=== PATIENT | female | born 1940 | race Caucasian/White ===

== ENCOUNTER 2019-01-11 19:15 | Inpatient (IN) ==
[2019-01-11] MEDS ORDERED: Aspirin 81 MG TAB.CHEW PO ONE (19:21)
--- NOTE | 2019-01-11 19:22 | Emergency Department Note ---
Disposition Clinical Impression: RAVINDER (acute kidney injury) Atrial fibrillation Qualifiers: Atrial fibrillation type: chronic Qualified Code(s): I48.2 - Chronic atrial f ibrillation Chest pain Qualifiers: Chest pain type: unspecified Qualified Code(s): R07.9 - Chest pain, unspecified Disposition: Admitted As Inpatient Condition: Fair Time of Disposition: 20:53 Chest Pain HPI - General Stated Complaint: dizzy shoulder pain Time Seen by Provider: 01/11/19 19:17 Source: patient, EMS Mode of arrival: EMS Limitations: no limitations Vital Signs Reviewed: Yes Nursing Notes Reviewed: Yes - History of Present Illness HPI Narrative: 78 yo female with past medical history of atrial fibrillation on Xarelto, hypertension, hyperlipidemia, diabetes, stroke presents to the emergency department via EMS with a complaint of sudden onset of dizziness, nausea and vomiting, diaphoresis and right shoulder pain. Patient states this occurred while she was sitting in her chair. She had an episode similar to this yesterday when limits. She currently does not have any pain and feels back to normal. She did vomit once during the onset of symptoms. She states she takes a baby aspirin daily after her stroke and took one this morning. She denies headache, chest pain, shortness of breath, abdominal pain, nausea and vomiting at this time. - Related Data Home Medications Medication Instructions Recorded Confirmed Atorvastatin [Lipitor] 80 mg PO HS 09/26/15 11/08/18 Diltiazem HCl [Diltiazem 24Hr Cd] 360 mg PO DAILY 09/26/15 11/08/18 FLUoxetine HCl [PROzac] 40 mg PO DAILY 09/26/15 11/08/18 Rivaroxaban [Xarelto] 20 mg PO DAILY 09/26/15 11/08/18 Vit C/E/Zn/Coppr/Lutein/Zeaxan 1 cap PO DAILY 11/08/18 11/08/18 [Preservision Areds 2 Softgel] Aspirin 325 mg PO DAILY 01/11/19 01/11/19 Rivaroxaban [Xarelto] 20 mg PO HS 01/11/19 01/11/19 Tylenol 01/11/19 Previous Rx's Medication Instructions Recorded Atorvastatin Calcium [Lipitor] 80 mg PO HS #30 tab 12/12/18 Diltiazem CD (24hr) [Cardizem CD] 360 mg PO DAILY #30 cap.er.24h 12/12/18 FLUoxetine HCl [PROzac] 40 mg PO DAILY #30 capsule 12/12/18 Famotidine [Pepcid] 20 mg PO BID #60 tablet 12/12/18 Metoprolol [Lopressor] 25 mg PO BID #60 tablet 12/12/18 Allergies Allergy/AdvReac Type Severity Reaction Status Date / Time metformin AdvReac Gastrointestinal Verified 11/08/18 19:23 Upset oxycodone [From Percocet] AdvReac Nausea Verified 03/29/15 10:03 All systems ED: reviewed and negative except as stated. Review of Systems: As Per HPI Constitutional: Denies: fever, weakness Cardiovascular: Reports: chest pain. Denies: palpitations, dyspnea on exertion, orthopnea, edema, syncope Respiratory: Denies: cough, dyspnea, wheezes Gastrointestinal: Reports: nausea, vomiting. Denies: abdominal pain, diarrhea Musculoskeletal: Reports: back pain. Denies: neck pain Integumentary: Denies: rash Neurological: Denies: headache Chest Pain PMH - Past Medical History Medical history: Reports: atrial fibrillation, cancer, CVA, diabetes, other Psychiatric history: Reports: anxiety, depression - Social History Smoking Status: Never smoker Alcohol use: Reports: none Drug use: Reports: none Physical Exam - General Limitations: no limitations General appearance: alert, in no apparent distress - Head Head exam: atraumatic, normocephalic - Eye Eye exam: Present: normal appearance, PERRL, EOMI - ENT ENT exam: normal exam, normal oropharynx - Neck Neck exam: Present: normal inspection. Absent: tenderness - Chest Chest inspection: Present: normal inspection. Absent: tenderness, rash - Respiratory Respiratory exam: Present: normal lung sounds bilaterally. Absent: wheezes - Cardiovascular Cardiovascular exam: Present: normal rhythm, bradycardia - Abdominal Exam Abdominal exam: Present: soft, Non-Tender. Absent: distention, guarding, rebound, rigidity - Extremities Exam Extremities exam: Present: normal inspection. Absent: tenderness, pedal edema - Neurological Exam Neurological exam: Present: alert, oriented X3 - Psychiatric Psychiatric exam: Present: normal affect, normal mood - Skin Skin exam: Present: warm, dry, intact Course Vital Signs Temperature 98 F 01/11/19 19:17 Pulse Rate 48 01/11/19 19:17 Respiratory Rate 16 01/11/19 19:17 Blood Pressure 103/66 01/11/19 19:17 O2 Sat by Pulse Oximetry 93 01/11/19 19:17 Temperature 98 F 01/11/19 19:17 Pulse Rate 48 01/11/19 19:17 Respiratory Rate 16 01/11/19 19:17 Blood Pressure 103/66 01/11/19 19:17 O2 Sat by Pulse Oximetry 93 01/11/19 19:17 Oxygen Delivery Oxygen Delivery Room Air Chest Pain - MDM Narrative Medical decision making narrative: Patient presents for sudden onset of dizziness, diaphoresis, vomiting and right shoulder pain which is concerning for a cardiac equivalent. Patient will be evaluated for ACS with EKG, chest x-ray, basic labs, troponin, magnesium, BNP and be given aspirin. She is pain-free currently and her blood pressure is low at 100/66, therefore we will not order nitroglycerin at this time. Patient was also hypoxic by squad at 92% and is currently 93% here on 2 L, therefore we will order a d-dimer to rule out pulmonary embolus. 2049 - pts lab work has returned and her troponin, d-dimer, CBC are all within normal limits. Her heart score is 7 and she is at significant risk for adverse cardiac event if discharged home. The patient also has an RAVINDER with an elevated creatinine and her BNP is also slightly elevated. Patient states she is still chest pain-free at this time and is feeling about the same as when she arrived here. Patient is agreeable with being admitted to the hospital for IV fluid hydration and cardiac evaluation as her last heart catheter was approximately 6 or 7 years ago and she does not have a scheduled medical hospital sales appointment for several months up at [facility]. Patient will be started on maintenance fluids and admitted to the hospitalist. - Medical Records Medical records reviewed: Yes I reviewed the patient's medical records. - Lab Data Lab results reviewed: Yes I reviewed the patient's lab results. Result diagrams: 01/11/19 19:44 01/11/19 19:44 Lab Results 01/11/19 01/11/19 01/11/19 Range/Units 19:44 19:44 19:44 WBC 9.7 (4.3-11.1) K/mcL RBC 4.13 (3.82-4.97) M/mcL Hgb 12.6 (11.5-15.4) g/dL Hct 39.4 (35.3-44.9) % MCV 95.4 (83.0-100.0) fL MCH 30.5 (28.0-33.3) pg MCHC 32.0 (31.6-35.5) g/dL RDW 15.3 H (11.5-14.5) % Plt Count 272 (140-400) K/mcL MPV 9.8 (9.4-12.4) fL Immature Gran % 0.4 (0-4) % Seg Neutrophils % 72.7 % Lymphocytes % 16.2 % Monocytes % 8.9 % Eosinophils % 1.2 % Basophils % 0.6 % Neutrophils # 7.1 (1.6-8.9) K/mcL Lymphocytes # 1.6 (0.6-4.6) K/mcL Monocytes # 0.9 (0.0-1.3) K/mcL Eosinophils # 0.1 (0.0-0.6) K/mcL Basophils # 0.1 (0.0-0.2) K/mcL D-Dimer (0-500) ng/mLFEU Sodium 138 (136-145) mEq/L Potassium 4.2 (3.5-5.1) mEq/L Chloride 107 (98-107) mEq/L Carbon Dioxide 23 (23-29) mEq/L BUN 20 (8-23) mg/dL Creatinine 1.24 H (0.60-1.20) mg/dL Est GFR ( Amer) 51 L (> 60) Est GFR (Non-Af Amer) 42 L (> 60) BUN/Creatinine Ratio 16 (6-26) Glucose 187 H (70-105) mg/dL Calculated Osmolality 294 (280-300) Calcium 9.6 (8.6-10.3) mg/dL Magnesium 1.9 (1.6-2.6) mg/dL Troponin I < 0.03 (< 0.04) ng/mL B-Natriuretic Peptide 565 H (Less than 100) pg/mL 01/11/19 Range/Units 19:44 WBC (4.3-11.1) K/mcL RBC (3.82-4.97) M/mcL Hgb (11.5-15.4) g/dL Hct (35.3-44.9) % MCV (83.0-100.0) fL MCH (28.0-33.3) pg MCHC (31.6-35.5) g/dL RDW (11.5-14.5) % Plt Count (140-400) K/mcL MPV (9.4-12.4) fL Immature Gran % (0-4) % Seg Neutrophils % % Lymphocytes % % Monocytes % % Eosinophils % % Basophils % % Neutrophils # (1.6-8.9) K/mcL Lymphocytes # (0.6-4.6) K/mcL Monocytes # (0.0-1.3) K/mcL Eosinophils # (0.0-0.6) K/mcL Basophils # (0.0-0.2) K/mcL D-Dimer 445 (0-500) ng/mLFEU Sodium (136-145) mEq/L Potassium (3.5-5.1) mEq/L Chloride (98-107) mEq/L Carbon Dioxide (23-29) mEq/L BUN (8-23) mg/dL Creatinine (0.60-1.20) mg/dL Est GFR ( Amer) (> 60) Est GFR (Non-Af Amer) (> 60) BUN/Creatinine Ratio (6-26) Glucose (70-105) mg/dL Calculated Osmolality (280-300) Calcium (8.6-10.3) mg/dL Magnesium (1.6-2.6) mg/dL Troponin I (< 0.04) ng/mL B-Natriuretic Peptide (Less than 100) pg/mL - Radiology Data Radiology results reviewed: Yes I reviewed the patient's radiology results. - EKG Data EKG attestation: Yes I reviewed and interpreted this EKG. EKG results narrative: EKG obtained at 19:18 on 01/11/2019 Heart rate 47 bpm, QRS duration 83, QT 531, QTC 470 Junctional rhythm with flattened T waves in anterior and lateral leads as well as the inferior leads. No signs of ST segment elevations. Previous EKG dated 10/28/2018 shows sinus rhythm with normal-appearing T waves. Heart Score - Score History: Highly Suspicious EKG: Non Specific repolarisation Disturbance Age: Greater than 65 Risk Factors: Equal/Greater than 3 risk factor or history of atherosclerotic disease Troponin: Less than normal limit HEART Score Total: 7
--- NOTE | 2019-01-11 19:26 | Emergency Department Note ---
Disposition Clinical Impression: Atrial fibrillation Qualifiers: Atrial fibrillation type: chronic Qualified Code(s): I48.2 - Chronic atrial fibrillation Chest pain Qualifiers: Chest pain type: unspecified Qualified Code(s): R07.9 - Chest pain, unspecified Disposition: Admitted As Inpatient Time of Disposition: 19:26 General Adult HPI - General Stated complaint: dizzy shoulder pain Time Seen by Provider: 01/11/19 19:17 Source: patient, EMS Mode of arrival: EMS Limitations: no limitations Nursing Notes Reviewed: Yes Vital Signs Reviewed: Yes - History of Present Illness HPI Narrative: Attestation note: Patient was seen with the emergency medicine resident/nurse practitioner/ph ysician assistant loan processor/transitional resident/medical student: Dr. ISRA THOMAS. I was present for the significant portions of the performance and interpretation of procedures and EKGs. I have personally performed a face to face evaluation on this patient. I have reviewed and agree with history and physical examination patient management and disposition. 78-year-old female presents with chest pain and radiation to the right shoulder with some nausea dyspnea brought in by EMS for chest pain. Transmitted EKG shows nonspecific ST-T changes but no STEMI. Physical examination patient appears slightly fatigued but responds to questions is not diaphoretic or pale. This had her systolic was about 91 in the field here to over 100. Pacer review patient's cardiology note at [facility] her heart score is 7. Patient took a baby aspirin this morning she will be given 3 more baby aspirin she is chest pain-free at this time. She will get troponin chest x-ray screening labs with admission anticipated. Providing 30 minutes critical care service for this patient. Disposition pending Pain Scale: 0 - Related Data Home Medications Medication Instructions Recorded Confirmed Atorvastatin [Lipitor] 80 mg PO HS 09/26/15 11/08/18 Diltiazem HCl [Diltiazem 24Hr Cd] 360 mg PO DAILY 09/26/15 11/08/18 FLUoxetine HCl [PROzac] 40 mg PO DAILY 09/26/15 11/08/18 Rivaroxaban [Xarelto] 20 mg PO DAILY 09/26/15 11/08/18 Vit C/E/Zn/Coppr/Lutein/Zeaxan 1 cap PO DAILY 11/08/18 11/08/18 [Preservision Areds 2 Softgel] Previous Rx's Medication Instructions Recorded Atorvastatin Calcium [Lipitor] 80 mg PO HS #30 tab 12/12/18 Diltiazem CD (24hr) [Cardizem CD] 360 mg PO DAILY #30 cap.er.24h 12/12/18 FLUoxetine HCl [PROzac] 40 mg PO DAILY #30 capsule 12/12/18 Famotidine [Pepcid] 20 mg PO BID #60 tablet 12/12/18 Metoprolol [Lopressor] 25 mg PO BID #60 tablet 12/12/18 Rivaroxaban [Xarelto] 20 mg PO DAILY #30 tablet 12/12/18 Allergies Allergy/AdvReac Type Severity Reaction Status Date / Time metformin AdvReac Gastrointestinal Verified 11/08/18 19:23 Upset oxycodone [From Percocet] AdvReac Nausea Verified 03/29/15 10:03 Past Medical History - Past Medical History Medical history: Reports: atrial fibrillation, cancer, CVA, DVT, diabetes, other Psychiatric history: Reports: anxiety, depression - Social History Smoking Status: Never smoker Smokeless Tobacco Status: No Alcohol use: Reports: none Drug use: Reports: none Physical Exam - General Limitations: no limitations General appearance: alert Course Vital Signs Temperature 98 F 01/11/19 19:17 Pulse Rate 48 01/11/19 19:17 Respiratory Rate 16 01/11/19 19:17 Blood Pressure 103/66 01/11/19 19:17 O2 Sat by Pulse Oximetry 93 01/11/19 19:17 Temperature 98 F 01/11/19 19:17 Pulse Rate 48 01/11/19 19:17 Respiratory Rate 16 01/11/19 19:17 Blood Pressure 103/66 01/11/19 19:17 O2 Sat by Pulse Oximetry 93 01/11/19 19:17 Oxygen Delivery Oxygen Delivery Room Air
[2019-01-11 20:01] LABS: Basophils # 0.1 K/mcL (0.0-0.2); Basophils % 0.6 %; Eosinophils # 0.1 K/mcL (0.0-0.6); Eosinophils % 1.2 %; Hematocrit 39.4 % (35.3-44.9); Hemoglobin 12.6 g/dL (11.5-15.4); Immature Granulocytes % 0.4 % (0-4); Lymphocytes # 1.6 K/mcL (0.6-4.6); Lymphocytes % 16.2 %; Mean Corpuscular Hemoglobin 30.5 pg (28.0-33.3); Mean Corpuscular Volume 95.4 fL (83.0-100.0); Mean Platelet Volume 9.8 fL (9.4-12.4); Monocytes # 0.9 K/mcL (0.0-1.3); Monocytes % 8.9 %; Neutrophils # 7.1 K/mcL (1.6-8.9); Platelet Count 272 K/mcL (140-400); Red Blood Count 4.13 M/mcL (3.82-4.97); Red Cell Distribution Width 15.3 % (11.5-14.5); Segmented Neutrophils % 72.7 %; White Blood Count 9.7 K/mcL (4.3-11.1)
[2019-01-11 20:25] LABS: BUN/Creatinine Ratio 16 (6-26); Blood Urea Nitrogen 20 mg/dL (8-23); Calcium 9.6 mg/dL (8.6-10.3); Carbon Dioxide 23 mEq/L (23-29); Chloride 107 mEq/L (98-107); Glucose 187 mg/dL (70-105); Magnesium 1.9 mg/dL (1.6-2.6); Osmolality,Calculated 294 (280-300); Potassium 4.2 mEq/L (3.5-5.1); Sodium 138 mEq/L (136-145); Troponin I < 0.03 ng/mL (< 0.04); eGFR For African Americans 51 (> 60); eGFR For Non-African Americans 42 (> 60)
[2019-01-11] MEDS: 0.9 % Sodium Chloride 1,000 ML IVC SCH (21:03)
[2019-01-11] MEDS ORDERED: Naloxone 0.4 MG/ML INJ IVP PRN (21:58)
[2019-01-11] MEDS ORDERED: Ondansetron 4 MG/2 ML VIAL IVP PRN (21:58)
[2019-01-11] MEDS ORDERED: D5% in Water 1,000 ML IVC PRN (22:04)
[2019-01-11] MEDS ORDERED: *HR* Dextrose 50 % in Water (Syg) 50 ML SYRINGE IVP PRN (22:04)
[2019-01-11] MEDS ORDERED: Dextrose Gel 15 GM/37.5 ML TUBE PO PRN ×2 (22:04)
--- NOTE | 2019-01-11 22:04 | Internal Med History&Physical ---
Date of Encounter: 01/11/19 Time of Encounter: 21:45 Internal Medicine - H&P: HPI Chief complaint: ACS rule out Admitted From: Emergency Dept Plans for Post Hospital Care: Home History of present illness: Ms. Hearn is a 78 year old female Patient presented to the ER with right should pain, dizziness and vomiting. St ates that she was sitting in a chair when she suddenly had dizziness, right should pain and an episode of vomiting. She had a similar episode the day before that resolved on its own. She has a significant history of resent stroke as well as atrial fibrillation currently on xarelto. She was also seen in the ER about 10 days ago for a fall requiring a stable to be placed for a head wound. When she arrived to the ER she was pain free. In the ER patient's vital signs were notable for a heart rate of 48, blood pressure of 103/66. CBC: Within normal limits BMP: Notable for creatinine of 1.24, GFR of 42, glucose of 187. Troponin undetectable BNP 565 D-dimer 445 Chest x-ray showed no evidence of acute cardiopulmonary disease EKG: bradycardia with rate of 47, no ischemic changes. In the ER patient received a dose of aspirin, and was started on maintenance fluids at 75cc/hr. Due to her history she was admitted to the hospital for ACS rule out. Upon my evaluation patient had an episode of vomiting upon transfer from the stretcher to the hospital bed. She denies chest pain, abdominal pain, nausea, vomiting, diarrhea, constipation, shortness of breath and vision changes. She states that she has a family history significant for diabetes in her mother and father, and her mother had heart disease. She is a full code. Past Med Surg Social Fam HX - Past Medical History Medical history: atrial fibrillation, cancer, CVA, DVT, diabetes, other Additional medical history: breast ca. uteran cancer. right leg fx/ sx. blood clot in head Psychiatric history: anxiety, depression - Past Surgical History Additional surgical history: Right shoulder replacement, hyst, left knee, right leg plate, ORIF left ankle, cataract surgery - Social History Smoking Status: Never smoker Smokeless Tobacco Status: No Alcohol use: none Drug use: none - Family History Father Living Status: Hx Family Cancer: Yes Mother Living Status: Hx Family Cardiac Disorders: Yes Internal Medicine - H&P: Meds Atorvastatin [Lipitor] 80 mg PO HS 09/26/15 [History] Diltiazem HCl [Diltiazem 24Hr Cd] 360 mg PO DAILY 09/26/15 [History] FLUoxetine HCl [PROzac] 40 mg PO DAILY #30 capsule 12/12/18 [Rx] Famotidine [Pepcid] 20 mg PO BID #60 tablet 12/12/18 [Rx] Metoprolol [Lopressor] 25 mg PO BID #60 tablet 12/12/18 [Rx] Aspirin 325 mg PO DAILY 01/11/19 [History] Rivaroxaban [Xarelto] 20 mg PO HS 01/11/19 [History] Tylenol 01/11/19 [History] Allergy/AdvReac Type Severity Reaction Status Date / Time metformin AdvReac Gastrointestinal Verified 11/08/18 19:23 Upset oxycodone [From Percocet] AdvReac Nausea Verified 03/29/15 10:03 All Systems PM: A 10-system review of systems was performed and is negative for pertinent findings except as documented above in the HPI. - Constitutional Vitals: Temp Pulse Resp BP Pulse Ox 97.5 F L 45 15 94/60 93 01/11/19 21:24 01/11/19 21:24 01/11/19 21:24 01/11/19 21:24 01/11/19 21:24 General appearance: Present: cooperative, A&O X 3, pleasant, no acute distress, answers questions appropriately Exam: - - Head Head exam: Present: normal inspection - Eye Eye exam: Present: EOMI, normal appearance - Respiratory Respiratory exam: Present: CTAB. Absent: rales, respiratory distress, rhonchi, wheezes - Cardiovascular Cardiovascular exam: Present: bradycardia. Absent: diastolic murmur, systolic murmur - GI/Abdominal GI/Abdominal exam: Present: normal bowel sounds, soft. Absent: tenderness - Extremities Exam Extremities exam: Present: warm, radial pulses palpable and symmetrical. Absent: calf tenderness, pedal edema, tenderness - Neurological Exam Neurological exam: Present: motor sensory deficit. Absent: no focal deficits, strengths equal and symetr throughout, facial droop, speech deficit Additional comments: Left side weaker than right secondary to CVA two months ago - Skin Skin exam: Present: dry, normal color, warm Internal Med - H&P Results - Labs CBC & Chem 7: 01/11/19 19:44 01/11/19 19:44 Labs: Short CBC 01/11/19 Range/Units 19:44 WBC 9.7 (4.3-11.1) K/mcL Hgb 12.6 (11.5-15.4) g/dL Hct 39.4 (35.3-44.9) % Plt Count 272 (140-400) K/mcL Neutrophils # 7.1 (1.6-8.9) K/mcL BMP 01/11/19 19:44 Sodium 138 Potassium 4.2 Chloride 107 Carbon Dioxide 23 BUN 20 Creatinine 1.24 H Glucose 187 H Calcium 9.6 Cardiac Enzymes 01/11/19 Range/Units 19:44 Troponin I < 0.03 (< 0.04) ng/mL - Impressions ITS Impressions Chest X-Ray 01/11/19 19:18 IMPRESSION: No evidence of acute cardiopulmonary disease. D/ / Armando Lemus MD / Armando Lemus MD Interpreting Provider: Armando Lemus MD - Assessment and Plan (1) Right shoulder pain Current Visit: Yes Status: Acute Assessment and plan: Pain started in the afternoon, associated with dizziness and vomiting. Patient denies chest pain, denies recent falls although she did have a fall on 01/01/19 after she was walking in her home. Denies injury to the shoulder at that time. Current symptoms suspicious for chest pain equivalent, will rule out ACS. EKG non-ischemic, troponin undetectable. Pain now resolved. Continue to trend troponin Cardiac monitoring Echocardiogram in the morning. Continue xarelto Consider gallbladder disease if cardiac work up remains negative Qualifiers: Chronicity: acute Qualified Code(s): M25.511 - Pain in right shoulder (2) RAVINDER (acute kidney injury) Current Visit: Yes Status: Acute Assessment and plan: Patient's creatinine elevated form previous, likely secondary to dehydration and vomiting. Started on low maintenance fluids of 75cc/hr. Repeat labs in the morning Continue to monitor (3) Atrial fibrillation Current Visit: Yes Status: Chronic Assessment and plan: currently rate controlled, rate of mid to high 40's. Patient states that this is her basline. Cardiac monitoring Qualifiers: Atrial fibrillation type: chronic Qualified Code(s): I48.2 - Chronic atrial fibrillation (4) Cerebrovascular accident (CVA) Current Visit: No Status: Acute Assessment and plan: Left sided weakness at baseline Qualifiers: CVA mechanism: embolism Precerebral and cerebral artery: middle cerebral artery Laterality of affected vessel: right Qualified Code(s): I63.411 - Cerebral infarction due to embolism of right middle cerebral artery (5) Chronic anticoagulation Current Visit: No Status: Acute Assessment and plan: On xarelto for history of atrial fibrillation (6) Diabetes Current Visit: No Status: Acute Assessment and plan: Patient is not an insulin dependent diabetic Monitor sugars Q6H Diabetic diet/ NPO after midnight Low dose insulin sliding scale as needed Hold home meds. Qualifiers: Diabetes mellitus type: type 2 Diabetes mellitus intermediate accountant insulin use: without intermediate accountant use Diabetes mellitus complication status: with hyperglycemia Qualified Code(s): E11.65 - Type 2 diabetes mellitus with hyperglycemia (7) DVT prophylaxis Current Visit: Yes Status: Acute Assessment and plan: Continue home xarelto - Time Spent With Patient Total time spent is greater than 50% in coordination of care (as documented) at patient's floor/unit and/or counseling patient:
[2019-01-11] MEDS ORDERED: *HR* Rivaroxaban 10 MG TABLET PO SCH (22:30)
[2019-01-12] MEDS: Insulin LISPRO 300 UNITS/3 ML VIAL SQ SCH ×4 (00:10→17:52)
[2019-01-12 02:39] LABS: Hematocrit 35.8 % (35.3-44.9); Hemoglobin 11.2 g/dL (11.5-15.4); Mean Corpuscular HGB Conc 31.3 g/dL (31.6-35.5); Mean Corpuscular Hemoglobin 29.7 pg (28.0-33.3); Mean Platelet Volume 10.1 fL (9.4-12.4); Platelet Count 243 K/mcL (140-400); Red Blood Count 3.77 M/mcL (3.82-4.97); Red Cell Distribution Width 15.6 % (11.5-14.5); White Blood Count 9.3 K/mcL (4.3-11.1)
[2019-01-12 02:56] LABS: Calcium 9.2 mg/dL (8.6-10.3); Potassium 4.3 mEq/L (3.5-5.1)
[2019-01-12] MEDS: FLUoxetine 20 MG CAPSULE PO SCH (07:53)
[2019-01-12] MEDS: Aspirin 325 MG TABLET PO SCH (07:54)
--- NOTE | 2019-01-12 08:41 | Internal Med Progress Note ---
Hospitalist Progress Note - Encounter Date of Encounter: 01/12/19 Time of Encounter: 08:39 - Subjective Interval History: Pt seen and examined in the room. Reported intermittent left sided chest pain and shoulder pain, associated with mild sob and cough. Denies palpitation or syncope. - Exam Vitals: Temp Pulse Resp BP Pulse Ox 98.1 F 117 16 142/73 93 01/12/19 07:29 01/12/19 07:29 01/12/19 07:29 01/12/19 07:29 01/12/19 07:29 Exam: PHYSICAL EXAMINATION: GENERAL APPEARANCE: The patient is alert, oriented and in no acute distress. HEENT: Head is normocephalic. The sinuses are nontender. Pupils are equal and reactive. The nares are patent. Oropharynx clear without lesions. NECK: Supple without lymphadenopathy. HEART: Regular rate and rhythm. LUNGS: No crackles or wheezes are heard. ABDOMEN: Soft, nontender, nondistended with good bowel sounds heard. Inguinal area is normal. EXTREMITIES: Without cyanosis, clubbing or edema. NEUROLOGICAL: Gross nonfocal. SKIN: Warm and dry without any rash. - Assessment and Plan (1) Right shoulder pain Current Visit: Yes Status: Acute Assessment and Plan: Pain started in the afternoon, associated with dizziness and vomiting. Patient denies chest pain, denies recent falls although she did have a fall on 01/01/19 after she was walking in her home. Denies injury to the shoulder at that time. Current symptoms suspicious for chest pain equivalent, will rule out ACS. EKG non-ischemic, troponin undetectable. Pain now resolved. Continue to trend troponin Cardiac monitoring Echocardiogram in the morning. Continue xarelto (2) Cerebrovascular accident (CVA) Current Visit: No Status: Acute Assessment and Plan: Left sided weakness at baseline (3) Atrial fibrillation Current Visit: No Status: Chronic Assessment and Plan: currently rate controlled, rate of mid to high 40's. Patient states that this is her basline. Cardiac monitoring. Hold home meds Cardizem and Metoprolol for now. (4) Chronic anticoagulation Current Visit: No Status: Acute Assessment and Plan: On xarelto for history of atrial fibrillation (5) Diabetes Current Visit: No Status: Acute Assessment and Plan: Patient is not an insulin dependent diabetic Low dose insulin sliding scale as needed Hold home meds. (6) RAVINDER (acute kidney injury) Current Visit: Yes Status: Resolved (7) DVT prophylaxis Current Visit: Yes Status: Acute Assessment and Plan: Continue home xarelto - Time Spent with Patient Total time spent is greater than 50% in coordination of care (as documented) at patient's floor/unit and/or counseling patient: Greater than 35 minutes Plan of Care Discussed with: patient Internal Medicine: Result - Labs CBC & Chem 7: 01/12/19 01:50 01/12/19 01:50 Labs: Short CBC 01/11/19 01/12/19 Range/Units 19:44 01:50 WBC 9.7 9.3 (4.3-11.1) K/mcL Hgb 12.6 11.2 L (11.5-15.4) g/dL Hct 39.4 35.8 (35.3-44.9) % Plt Count 272 243 (140-400) K/mcL Neutrophils # 7.1 (1.6-8.9) K/mcL BMP 01/11/19 01/12/19 19:44 01:50 Sodium 138 142 Potassium 4.2 4.3 Chloride 107 109 H Carbon Dioxide 23 22 L BUN 20 23 Creatinine 1.24 H 1.10 Glucose 187 H 156 H Calcium 9.6 9.2 Cardiac Enzymes 01/11/19 01/12/19 Range/Units 19:44 01:50 Troponin I < 0.03 < 0.03 (< 0.04) ng/mL - ABG Interpretation ABG results: PT/INR, D-dimer 445 ng/mLFEU (0-500) 01/11/19 19:44 - Impressions Impressions Chest X-Ray 01/11/19 19:18 IMPRESSION: No evidence of acute cardiopulmonary disease. D/ / Armando Lemus MD / Armando Lemus MD Interpreting Provider: Armando Lemus MD Consult Discharge Plan - Plan Referrals: NONE,PCP [Primary Care Provider] - (1) Right shoulder pain Qualifiers: Chronicity: acute Qualified Code(s): M25.511 - Pain in right shoulder (2) Cerebrovascular accident (CVA) Qualifiers: CVA mechanism: embolism Precerebral and cerebral artery: middle cerebral artery Laterality of affected vessel: right Qualified Code(s): I63.411 - Cerebral infarction due to embolism of right middle cerebral artery (3) Atrial fibrillation Qualifiers: Atrial fibrillation type: chronic Qualified Code(s): I48.2 - Chronic atrial fibrillation (5) Diabetes Qualifiers: Diabetes mellitus type: type 2 Diabetes mellitus alf insulin use: without dedicated intermodal truck driver use Diabetes mellitus complication status: with hyperglycemia Qualified Code(s): E11.65 - Type 2 diabetes mellitus with hyperglycemia
[2019-01-12] MEDS ORDERED: Famotidine 20 MG TABLET PO SCH (09:00)
[2019-01-12] MEDS: Diltiazem CD (24hr) 180 MG CAPSULE PO SCH (10:13)
[2019-01-12] MEDS: 0.9 % Sodium Chloride 1,000 ML IVC SCH (10:17)
[2019-01-12] MEDS: *HR* Rivaroxaban 15 MG TABLET PO SCH (17:46)
[2019-01-13] MEDS: 0.9 % Sodium Chloride 1,000 ML IVC SCH (00:42)
[2019-01-13] MEDS: Insulin LISPRO 300 UNITS/3 ML VIAL SQ SCH ×5 (00:43→23:11)
[2019-01-13 07:13] LABS: Basophils % 0.4 %; Eosinophils # 0.2 K/mcL (0.0-0.6); Eosinophils % 2.2 %; Hematocrit 34.7 % (35.3-44.9); Hemoglobin 10.7 g/dL (11.5-15.4); Immature Granulocytes % 0.3 % (0-4); Lymphocytes # 1.8 K/mcL (0.6-4.6); Lymphocytes % 27.2 %; Mean Corpuscular HGB Conc 30.8 g/dL (31.6-35.5); Mean Corpuscular Hemoglobin 30.2 pg (28.0-33.3); Mean Platelet Volume 9.8 fL (9.4-12.4); Monocytes # 0.8 K/mcL (0.0-1.3); Monocytes % 11.7 %; Neutrophils # 3.9 K/mcL (1.6-8.9); Platelet Count 218 K/mcL (140-400); Red Blood Count 3.54 M/mcL (3.82-4.97); Red Cell Distribution Width 15.6 % (11.5-14.5); Segmented Neutrophils % 58.2 %; White Blood Count 6.7 K/mcL (4.3-11.1)
[2019-01-13] MEDS ORDERED: Regadenoson 0.4 MG/5 ML SYRINGE IVP ONE (07:21)
[2019-01-13 07:33] LABS: BUN/Creatinine Ratio 25 (6-26); Blood Urea Nitrogen 16 mg/dL (8-23); Carbon Dioxide 24 mEq/L (23-29); Chloride 107 mEq/L (98-107); Glucose 124 mg/dL (70-105); Osmolality,Calculated 297 (280-300); Potassium 3.9 mEq/L (3.5-5.1); Sodium 142 mEq/L (136-145); eGFR For African Americans > 60 (> 60); eGFR For Non-African Americans > 60 (> 60)
[2019-01-13] MEDS: Aspirin 325 MG TABLET PO SCH (09:49)
[2019-01-13] MEDS: FLUoxetine 20 MG CAPSULE PO SCH (09:49)
[2019-01-13] MEDS: Diltiazem CD (24hr) 180 MG CAPSULE PO SCH (09:49)
[2019-01-13] MEDS: Famotidine 20 MG TABLET PO SCH (09:50)
--- NOTE | 2019-01-13 10:05 | Internal Med Progress Note ---
Hospitalist Progress Note - Encounter Date of Encounter: 01/13/19 Time of Encounter: 09:58 - Subjective Interval History: Pt seen and examined in the room. She has no chest pain right now. She denies sob, palpitation, or syncope. - Exam Vitals: Temp Pulse Resp BP Pulse Ox 97.8 F 95 18 126/64 93 01/13/19 04:43 01/13/19 04:43 01/13/19 04:43 01/13/19 04:43 01/13/19 04:43 Exam: PHYSICAL EXAMINATION: GENERAL APPEARANCE: The patient is alert, oriented and in no acute distress. HEENT: Head is normocephalic. The sinuses are nontender. Pupils are equal and reactive. The nares are patent. Oropharynx clear without lesions. NECK: Supple without lymphadenopathy. HEART: Regular rate and rhythm. LUNGS: No crackles or wheezes are heard. ABDOMEN: Soft, nontender, nondistended with good bowel sounds heard. Inguinal area is normal. EXTREMITIES: Without cyanosis, clubbing or edema. NEUROLOGICAL: Gross nonfocal. SKIN: Warm and dry without any rash. - Assessment and Plan (1) Right shoulder pain Current Visit: Yes Status: Acute Assessment and Plan: 01/12 Pain started in the afternoon, associated with dizziness and vomiting. Patient denies chest pain, denies recent falls although she did have a fall on 01/01/19 after she was walking in her home. Denies injury to the shoulder at that time. Current symptoms suspicious for chest pain equivalent, will rule out ACS. EKG non-ischemic, troponin undetectable. Pain now resolved. Continue to trend troponin Cardiac monitoring Echocardiogram in the morning. Continue xarelto. 01/13 Chest pain and right shoulder pain have improved. ECHO and stress test were unremarkable. Pt had one fall yesterday. PT/OT consulted. (2) Cerebrovascular accident (CVA) Current Visit: No Status: Acute Assessment and Plan: Left sided weakness at baseline (3) Atrial fibrillation Current Visit: No Status: Chronic Assessment and Plan: currently rate controlled, rate 60-80. Continue metoprolol and cardizem. Cardiac monitoring. (4) Chronic anticoagulation Current Visit: No Status: Acute Assessment and Plan: On xarelto for history of atrial fibrillation (5) Diabetes Current Visit: No Status: Acute Assessment and Plan: Patient is not an insulin dependent diabetic Low dose insulin sliding scale as needed Hold home meds. (6) RAVINDER (acute kidney injury) Current Visit: Yes Status: Resolved (7) DVT prophylaxis Current Visit: Yes Status: Acute Assessment and Plan: Continue home xarelto - Time Spent with Patient Total time spent is greater than 50% in coordination of care (as documented) at patient's floor/unit and/or counseling patient: Greater than 35 minutes Plan of Care Discussed with: patient Internal Medicine: Result - Labs CBC & Chem 7: 01/13/19 06:26 01/13/19 06:26 Labs: Short CBC 01/13/19 Range/Units 06:26 WBC 6.7 (4.3-11.1) K/mcL Hgb 10.7 L (11.5-15.4) g/dL Hct 34.7 L (35.3-44.9) % Plt Count 218 (140-400) K/mcL Neutrophils # 3.9 (1.6-8.9) K/mcL BMP 01/13/19 06:26 Sodium 142 Potassium 3.9 Chloride 107 Carbon Dioxide 24 BUN 16 Creatinine 0.64 Glucose 124 H Calcium 9.0 - ABG Interpretation ABG results: PT/INR, D-dimer 445 ng/mLFEU (0-500) 01/11/19 19:44 - Impressions Impressions Echocardiogram 01/12/19 10:00 Impressions: LVEF 45-50%. Mild global left ventricular systolic dysfunction. Indeterminate diastolic function. Normal right ventricular structure and function. Mildly dilated left atrium. History of mild aortic stenosis, not present on current study. Moderate-severe mitral regurgitation. Moderate tricuspid regurgitation. Moderate pulmonic regurgitation. Moderate pulmonary hypertension. Recommend repeat limited echo for LVEF and Doppler evaluation after rate control Left Ventricular Wall Motion: Rest Echo Findings The apex, apical inferior, mid inferior, basal inferior, apical anterior, mid anterior, basal anterior, apical septal, mid inferior septal, basal inferior septal, apical lateral, mid anterior lateral, basal anterior lateral, mid anterior septal, mid inferior lateral, basal anterior septal and basal inferior lateral moore were hypokinetic. Findings: Study Quality * Technically sub-optimal due to clinical status. ECG Findings * Atrial fibrillation, RVR. Left Ventricle * LVEF 45-50%. * Normal LV chamber size, wall thickness. * Mild global left ventricular systolic dysfunction. * Indeterminate diastolic function. Right Ventricle * Normal right ventricular structure and function. Left Atrium * Mildly dilated left atrium. Right Atrium * Normal right atrial size. Interatrial Septum * Interatrial septum not well evaluated. Aortic Valve * Moderately calcified aortic valve leaflets. * No aortic regurgitation. * History of mild aortic stenosis, not present on current study. Recommend dedicated doppler evaluation. Mitral Valve * Normal mitral valve structure. * Mild mitral annular calcification * Moderate-severe mitral regurgitation. * No mitral stenosis. Tricuspid Valve * Normal tricuspid valve structure. * No tricuspid stenosis. * Moderate tricuspid regurgitation. * Estimated RVSP is 50 mmHg. * Estimated RA pressure is 15 mmHg. * Moderate pulmonary hypertension. Pulmonic Valve * Pulmonic valve is not well visualized. * No pulmonic stenosis. * Moderate pulmonic regurgitation. Aorta * Normally sized aortic root. Pericardium * The pericardium appears normal. IVC * The IVC is not dilated. 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
--- NOTE | 2019-01-13 14:15 | Cardiology Consult Note ---
<Louis Sparrow - Last Filed: 01/13/19 14:31> Date of Encounter: 01/13/19 Time of Encounter: 14:13 Assessment and Plan (1) Cardiomyopathy Current Visit: Yes Status: Acute TTE showed new mildly reduced LVEF at 45-50%. Therewas mild aortic stenosis. Moderate to severe mitral regurgitation. Moderate TR, IA. Moderate PAH. During exam patient was in atrial fibrillation with RVR. Repeat study recommended now that HR controlled. Also last TTE done at [facility]. We will order. She is currently euvolemic. Low sodium diet recommended. Further recommendation following TTE. Qualifiers: Cardiomyopathy type: unspecified Qualified Code(s): I42.9 - Cardiomyopathy, unspecified (2) Right shoulder pain Current Visit: Yes Status: Acute Atypical right shoulder pain with diaphoresis and dizziness. Cardiac work-up this admission: Troponin negative x3. EKG atrial fibrillation with slow response. HR 47. No acute ST changes. Stress test was negative for ischemia or infarct. Gated EF 47%. Telemetry shows atrial fibrillation. Avg HR 92 bpm. Min HR 49 bpm. TTE shows EF mildly reduced at 45-50% compared to 2017 EF 60-65%. We will review [facility] records and repeat TTE. Qualifiers: Chronicity: acute Qualified Code(s): M25.511 - Pain in right shoulder (3) Atrial fibrillation Current Visit: No Status: Chronic Patient noted to have HR in the 40's on admission and throughout stay. Metoprolol held on evening of admission and pt developed afib with RVR as seen during echo. Telemetry review shows avg HR 84 bpm. Min HR 39 bpm at 1830 yesterday. No significant pauses. Recommend continuing metoprolol and cardizem. If significant recurrent bradycardia will consider decreasing medication. Continue xarelto. Patient should be on 20 mg daily. S/p CVA 10/28/18 after missing xarelto doses. Qualifiers: Atrial fibrillation type: chronic Qualified Code(s): I48.2 - Chronic atrial fibrillation Discussion w patient/family: The assessment and plan as outlined above was discussed with the patient and/or family members who expressed understanding and agreement. All questions were answered. Thank you for involving us in the care of your patient. Please call with any questions. History of Present Illness Consult date: 01/13/19 Requesting physician: Tonie Lai Consult reason: abnormal echo, bradycardia Chief complaint: weakness, nausea, right shoulder blade pain History of present illness: Ms. Hearn is a 78 year old female with past medical history significant for atrial fibrillation, HTN, HLD, DM type II and recent CVA with prolonged hospital stay at [facility]. She presents with weakness, dizziness, nausea, and right shoulder blade pain on Sunday. The patient was concerned she was having a heart attack. Denies prior history of CAD or IA. She was released from physical therapy to home a couple weeks ago. expresses concern that she is not regaining her strength. She is having difficulty doing physical therapy. He is inquiring if her medications could be causing her symptoms. Denies recent change in medications. She denies chest pain or significant SOB. Cardiology consulted for abnormal echo and bradycardia. Past Med Surg Social Fam HX - Past Medical History Medical history: atrial fibrillation, cancer, CVA, DVT, diabetes, other Additional medical history: breast ca. uteran cancer. right leg fx/ sx. blood clot in head Psychiatric history: anxiety, depression - Past Surgical History Additional surgical history: Right shoulder replacement, hyst, left knee, right leg plate, ORIF left ankle, cataract surgery - Social History Smoking Status: Never smoker Smokeless Tobacco Status: No Alcohol use: none Drug use: none - Family History Father Living Status: Hx Family Cancer: Yes Hx Family Endocrine Disorder: Yes (DM) Mother Living Status: Hx Family Cardiac Disorders: Yes Hx Family Endocrine Disorder: Yes (DM) Medications and Allergies Diltiazem HCl [Diltiazem 24Hr Cd] 360 mg PO DAILY 09/26/15 [History] FLUoxetine HCl [PROzac] 40 mg PO DAILY #30 capsule 12/12/18 [Rx] Famotidine [Pepcid] 20 mg PO BID #60 tablet 12/12/18 [Rx] Metoprolol [Lopressor] 25 mg PO BID #60 tablet 12/12/18 [Rx] Acetaminophen [Tylenol Arthritis] 650 mg PO Q8H PRN 01/11/19 [History] Aspirin 325 mg PO DAILY 01/11/19 [History] Rivaroxaban [Xarelto] 20 mg PO HS 01/11/19 [History] Ammonium Lactate 1 appl TP BID 01/13/19 [History] Atorvastatin Calcium 80 mg PO HS 01/13/19 [History] Cholecalciferol (Vitamin D3) [Vitamin D3] 2,000 units PO DAILY 01/13/19 [History] Vit C/E/Zn/Coppr/Lutein/Zeaxan [Preservision Areds 2 Softgel] 2 cap PO DAILY 01/13/19 [History] Allergy/AdvReac Type Severity Reaction Status Date / Time hydrocodone Allergy See Verified 01/13/19 13:42 Comments metformin AdvReac Diarrhea, Verified 01/13/19 13:42 Gastrointestinal Upset oxycodone [From Percocet] AdvReac Nausea Verified 01/11/19 23:07 All Systems Review: The remainder of the systems were reviewed and are negative Physical Examination Vital Signs, Last 4 Hours Temp Pulse Resp BP Pulse Ox 01/13/19 12:19 97.7 F 85 18 134/82 96 General: Conversant, No Apparent Distress HEENT: Atraumatic, Normocephaly, Mucus Membranes Moist Neck: No JVD, Normal carotid pulses Cardiac: Other (irregularly irregular, 3/6 systolic murmur) Lungs: Normal Breath Sounds, No Wheeze, Rales, Rhonchi Neuro: Alert and responsive, Other (left arm weakness noted) Abdomen: Soft, Non-Tender Skin: No rashes noted on visualized skin Musculoskeletal: No Chest Wall Tenderness Extremities: No Clubbing, No Cyanosis, No Edema, Normal Pulses Results 01/13/19 06:26 01/13/19 06:26 Lab Results 01/13/19 01/13/19 06:26 06:26 WBC 6.7 Hgb 10.7 L Hct 34.7 L Plt Count 218 Sodium 142 Potassium 3.9 Chloride 107 Carbon Dioxide 24 BUN 16 Creatinine 0.64 Glucose 124 H Calcium 9.0 - Imaging and Cardiology Stress Test: report reviewed Echo: pending, report reviewed - EKG Interpretation EKG results cardiology: personally reviewed Consult Discharge Plan - Plan Referrals: Job Venegas MD [Partnered Physician] - 01/20/19 1:30 pm <Sari Pandey - Last Filed: 01/13/19 17:10> Date of Encounter: 01/13/19 - Attending Attestation I examined this patient and my medical decision-making was reviewed with the PENCILS WASHER. I agree with the documented findings, disposition and treatment plan as described. Ms. Hearn presents with right shoulder pain. Troponin negative. Stress testing without ischemia. Echo returned with mild reduction in EF but not optimal due to elevated heart rates. Recommend repeat Echo now that heart rates are controlled. Request records from [facility] for comparison. Continue xarelto for AFIB. Recent CVA at [facility]. Patient/ mainly concerned about functional status and his concern about taking care of her at home. Recommend functional assessment and social work consult. Assessment and Plan Discussion w patient/family: The assessment and plan as outlined above was discussed with the patient and/or family members who expressed understanding and agreement. All questions were answered. Thank you for involving us in the care of your patient. Please call with any questions. History of Present Illness History of present illness: Ms. Hearn is a 78 year old female All Systems Review: The remainder of the systems were reviewed and are negative Physical Examination Vital Signs, Last 4 Hours Temp Pulse Resp BP Pulse Ox 01/13/19 15:59 97.7 F 69 17 112/67 92 Results 01/13/19 06:26 01/13/19 06:26 Lab Results 01/13/19 01/13/19 06:26 06:26 WBC 6.7 Hgb 10.7 L Hct 34.7 L Plt Count 218 Sodium 142 Potassium 3.9 Chloride 107 Carbon Dioxide 24 BUN 16 Creatinine 0.64 Glucose 124 H Calcium 9.0
[2019-01-13] MEDS: *HR* Rivaroxaban 15 MG TABLET PO SCH (18:18)
[2019-01-14 02:50] LABS: Hematocrit 31.5 % (35.3-44.9); Mean Corpuscular HGB Conc 31.7 g/dL (31.6-35.5); Mean Corpuscular Hemoglobin 30.4 pg (28.0-33.3); Mean Corpuscular Volume 95.7 fL (83.0-100.0); Mean Platelet Volume 9.9 fL (9.4-12.4); Platelet Count 223 K/mcL (140-400); Red Blood Count 3.29 M/mcL (3.82-4.97); Red Cell Distribution Width 15.3 % (11.5-14.5); White Blood Count 6.9 K/mcL (4.3-11.1)
[2019-01-14 03:07] LABS: BUN/Creatinine Ratio 25 (6-26); Blood Urea Nitrogen 15 mg/dL (8-23); Calcium 9.1 mg/dL (8.6-10.3); Carbon Dioxide 24 mEq/L (23-29); Chloride 107 mEq/L (98-107); Glucose 136 mg/dL (70-105); Osmolality,Calculated 297 (280-300); Potassium 3.6 mEq/L (3.5-5.1); Sodium 142 mEq/L (136-145); eGFR For African Americans > 60 (> 60); eGFR For Non-African Americans > 60 (> 60)
[2019-01-14] MEDS: Insulin LISPRO 300 UNITS/3 ML VIAL SQ SCH ×4 (07:44→21:37)
[2019-01-14] MEDS: Famotidine 20 MG TABLET PO SCH ×2 (09:09→21:38)
[2019-01-14] MEDS: Diltiazem CD (24hr) 180 MG CAPSULE PO SCH (09:09)
[2019-01-14] MEDS: FLUoxetine 20 MG CAPSULE PO SCH (09:09)
[2019-01-14] MEDS: Aspirin 325 MG TABLET PO SCH (09:10)
--- NOTE | 2019-01-14 09:29 | Internal Med Progress Note ---
Hospitalist Progress Note - Encounter Date of Encounter: 01/14/19 Time of Encounter: 09:27 - Subjective Interval History: Pt seen and examined in the room. Reported lightheadedness and weakness while standing from sitting, with associated SOB. Denies chest pain currently. Had a stroke recently and completed rehab. - Exam Vitals: Temp Pulse Resp BP Pulse Ox 98.2 F 102 17 135/87 94 01/14/19 07:19 01/14/19 07:19 01/14/19 07:19 01/14/19 07:19 01/14/19 07:19 Exam: PHYSICAL EXAMINATION: GENERAL APPEARANCE: The patient is alert, oriented and in no acute distress. HEENT: Head is normocephalic. The sinuses are nontender. Pupils are equal and reactive. The nares are patent. Oropharynx clear without lesions. NECK: Supple without lymphadenopathy. HEART: Regular rate and rhythm. LUNGS: No crackles or wheezes are heard. ABDOMEN: Soft, nontender, nondistended with good bowel sounds heard. Inguinal area is normal. EXTREMITIES: Without cyanosis, clubbing or edema. NEUROLOGICAL: Gross nonfocal. SKIN: Warm and dry without any rash. - Assessment and Plan (1) Right shoulder pain Current Visit: Yes Status: Acute Assessment and Plan: 01/12 Pain started in the afternoon, associated with dizziness and vomiting. Patient denies chest pain, denies recent falls although she did have a fall on 01/01/19 after she was walking in her home. Denies injury to the shoulder at that time. Current symptoms suspicious for chest pain equivalent, will rule out ACS. EKG non-ischemic, troponin undetectable. Pain now resolved. Continue to trend troponin Cardiac monitoring Echocardiogram in the morning. Continue xarelto. 01/13 Chest pain and right shoulder pain have improved. ECHO and stress test were unremarkable. Pt had one fall yesterday. PT/OT consulted. 01/14 Tele reviewed and had no jacqui event. Still having weakness or occasional lightheadedness. Pending PT/OT. Cardiology following. (2) Cerebrovascular accident (CVA) Current Visit: No Status: Acute Assessment and Plan: Left sided weakness at baseline (3) Atrial fibrillation Current Visit: No Status: Chronic Assessment and Plan: currently rate controlled, rate 60-80. Continue metoprolol and cardizem. Cardiac monitoring. Continue Xarelto. Cardiology following (4) Chronic anticoagulation Current Visit: No Status: Acute Assessment and Plan: On xarelto for history of atrial fibrillation (5) Diabetes Current Visit: No Status: Acute Assessment and Plan: Patient is not an insulin dependent diabetic Low dose insulin sliding scale as needed Hold home meds. (6) RAVINDER (acute kidney injury) Current Visit: Yes Status: Resolved (7) DVT prophylaxis Current Visit: Yes Status: Acute Assessment and Plan: Continue home xarelto - Time Spent with Patient Total time spent is greater than 50% in coordination of care (as documented) at patient's floor/unit and/or counseling patient: Greater than 35 minutes Plan of Care Discussed with: patient Internal Medicine: Result - Labs CBC & Chem 7: 01/14/19 02:01 01/14/19 02:01 Labs: Short CBC 01/14/19 Range/Units 02:01 WBC 6.9 (4.3-11.1) K/mcL Hgb 10.0 L (11.5-15.4) g/dL Hct 31.5 L (35.3-44.9) % Plt Count 223 (140-400) K/mcL BMP 01/14/19 02:01 Sodium 142 Potassium 3.6 Chloride 107 Carbon Dioxide 24 BUN 15 Creatinine 0.61 Glucose 136 H Calcium 9.1 - ABG Interpretation ABG results: PT/INR, D-dimer 445 ng/mLFEU (0-500) 01/11/19 19:44 Consult Discharge Plan - Plan Referrals: Job Venegas MD [Partnered Physician] - 01/20/19 1:30 pm (1) Right shoulder pain Qualifiers: Chronicity: acute Qualified Code(s): M25.511 - Pain in right shoulder (2) Cerebrovascular accident (CVA) Qualifiers: CVA mechanism: embolism Precerebral and cerebral artery: middle cerebral artery Laterality of affected vessel: right Qualified Code(s): I63.411 - Ce rebral infarction due to embolism of right middle cerebral artery (3) Atrial fibrillation Qualifiers: Atrial fibrillation type: chronic Qualified Code(s): I48.2 - Chronic atrial fibrillation (5) Diabetes Qualifiers: Diabetes mellitus type: type 2 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
--- NOTE | 2019-01-14 10:56 | Electrocardiograph Report ---
[address] [place] [address] Test Date: 2019-01-11 Pat Name: Carole Hearn Department: [id number] Room: 3B23 Gender: F Special Officer: : 1940 Requested By: Vee Coppola Order Number: [id number] Reading MD: Sari Pandey Measurements Intervals [place] Rate: 47 P: [place]: QRS: 33 QRSD: 83 T: 5 QT: 531 QTc: 470 Interpretive Statements Junctional rhythm Anterior infarct, old Borderline T abnormalities, inferior leads Electronically Signed On 01-14-2019 10:54:33 EDT by Sari Pandey
--- NOTE | 2019-01-14 14:41 | Cardiology Progress Note ---
Date of Encounter: 01/14/19 Time of Encounter: 14:20 Assessment and Plan (1) Cardiomyopathy Current Visit: Yes Status: Acute TTE showed new mildly reduced LVEF at 45-50%. There was mild aortic stenosis. Moderate to severe mitral regurgitation. Moderate TR, MS. Moderate PAH. During exam patient was in atrial fibrillation with RVR. Repeat study recommend ed now that HR controlled. Repeat TTE shows EF 50%, moderate to severe MR, mild . Also last TTE done at [facility] 10/2018 showed EF 50% with mild to moderate MR. She is currently euvolemic. Low sodium diet recommended. Ischemic evaluation with [facility] recommended for declining EF and worsening MR. R/B/A of [facility] reviewed. Patient agrees to proceed. Qualifiers: Cardiomyopathy type: unspecified Qualified Code(s): I42.9 - Cardiomyopathy, unspecified (2) Right shoulder pain Current Visit: Yes Status: Acute Atypical right shoulder pain with diaphoresis and dizziness. Cardiac work-up this admission: Troponin negative x3. EKG atrial fibrillation with slow response. HR 47. No acute ST changes. Stress test was negative for ischemia or infarct. Gated EF 47%. States remote [facility] with no obstructive CAD. Telemetry shows atrial fibrillation. Avg HR 92 bpm. Min HR 49 bpm. TTE shows EF mildly reduced at 45-50% compared to 2017 EF 60-65%. [facility] recommended to evaluate new CMP and MR. Qualifiers: Chronicity: acute Qualified Code(s): M25.511 - Pain in right shoulder (3) Atrial fibrillation Current Visit: No Status: Chronic Patient noted to have HR in the 40's on admission. Metoprolol held on evening of admission and pt developed afib with RVR as seen during echo. Meds restarted and now she is rate controlled. Avg HR 84 bpm. No significant bradycardia seen. No pauses. Recommend continuing metoprolol and cardizem. If significant recurrent br adycardia will consider decreasing medication. Continue xarelto---Will hold for [facility]. Restart tomorrow 01/15/19 after [facility]. Patient should be on 20 mg daily. S/p CVA 10/28/18 after missing xarelto doses. Qualifiers: Atrial fibrillation type: chronic Qualified Code(s): I48.2 - Chronic atrial fibrillation Discussion w patient/family: The assessment and plan as outlined above was discussed with the patient and/or family members who expressed understanding and agreement. All questions were answered. Thank you for involving us in the care of your patient. Please call with any questions. Subjective Principal diagnosis: new CMP, mod-severe MR Interval history: Ms. Hearn is a resting in her chair. States she feels better. No chest pain. Objective Vital Signs, Last 4 Hours Temp Pulse Resp BP Pulse Ox 01/14/19 11:31 97.9 F 79 19 131/67 94 Results 01/14/19 02:01 01/14/19 02:01 Lab Results 01/14/19 01/14/19 02:01 02:01 WBC 6.9 Hgb 10.0 L Hct 31.5 L Plt Count 223 Sodium 142 Potassium 3.6 Chloride 107 Carbon Dioxide 24 BUN 15 Creatinine 0.61 Glucose 136 H Calcium 9.1 Consult Discharge Plan - Plan Referrals: Job Venegas MD [Partnered Physician] - 01/20/19 1:30 pm
[2019-01-14] MEDS ORDERED: *HR* Rivaroxaban 10 MG TABLET PO SCH (17:00)
[2019-01-15 03:05] LABS: BUN/Creatinine Ratio 27 (6-26); Blood Urea Nitrogen 15 mg/dL (8-23); Carbon Dioxide 23 mEq/L (23-29); Chloride 107 mEq/L (98-107); Glucose 121 mg/dL (70-105); Osmolality,Calculated 290 (280-300); Potassium 3.7 mEq/L (3.5-5.1); Sodium 139 mEq/L (136-145); eGFR For African Americans > 60 (> 60); eGFR For Non-African Americans > 60 (> 60)
[2019-01-15 04:00] LABS: Basophils % 0.5 %; Eosinophils # 0.1 K/mcL (0.0-0.6); Hematocrit 31.8 % (35.3-44.9); Hemoglobin 10.2 g/dL (11.5-15.4); Immature Granulocytes % 0.3 % (0-4); Lymphocytes # 1.3 K/mcL (0.6-4.6); Lymphocytes % 20.8 %; Mean Corpuscular HGB Conc 32.1 g/dL (31.6-35.5); Mean Corpuscular Hemoglobin 30.6 pg (28.0-33.3); Mean Corpuscular Volume 95.5 fL (83.0-100.0); Mean Platelet Volume 9.4 fL (9.4-12.4); Monocytes # 0.7 K/mcL (0.0-1.3); Monocytes % 10.3 %; Neutrophils # 4.2 K/mcL (1.6-8.9); Platelet Count 218 K/mcL (140-400); Red Blood Count 3.33 M/mcL (3.82-4.97); Red Cell Distribution Width 15.3 % (11.5-14.5); Segmented Neutrophils % 66.1 %; White Blood Count 6.4 K/mcL (4.3-11.1)
[2019-01-15] MEDS: Diltiazem CD (24hr) 180 MG CAPSULE PO SCH (07:51)
[2019-01-15] MEDS: Famotidine 20 MG TABLET PO SCH ×2 (07:51→21:56)
[2019-01-15] MEDS: Aspirin 325 MG TABLET PO SCH (07:51)
[2019-01-15] MEDS: FLUoxetine 20 MG CAPSULE PO SCH (07:51)
[2019-01-15] MEDS: Insulin LISPRO 300 UNITS/3 ML VIAL SQ SCH ×4 (07:52→21:55)
[2019-01-15] MEDS ORDERED: *HR* Heparin 10,000 UNIT/10 ML VIAL ONE (11:37)
[2019-01-15] MEDS ORDERED: 0.9 % Sodium Chloride 1,000 ML ONE ×2 (11:37→11:45)
[2019-01-15] MEDS ORDERED: Heparin 1,000 UNITS/500 mL 500 ML ONE (11:37)
[2019-01-15] MEDS ORDERED: ISOVUE-370 200 ML INFUS..BTL ONE (11:37)
[2019-01-15] MEDS ORDERED: Nitroglycerin 1,000 MCG/10 ML VIAL IV ONE (11:37)
--- NOTE | 2019-01-15 11:45 | Pre-Sedation Evaluation ---
Pre-sedation evaluation - Pre-sedation checklist Date of procedure: 01/15/19 Procedure: [facility] Recent Vitals: Last Vital Signs Temp 98.1 F 01/15/19 07:31 Pulse 87 01/15/19 07:31 Resp 17 01/15/19 07:31 BP 129/60 01/15/19 07:31 Pulse Ox 94 01/15/19 07:31 H&P (including ROS) documented in medical record: Yes Previous reaction to sedatives/anesthetics: No Dietary Status: NPO after Midnight Airway Assessment: Patient can open mouth completely, TMJ function normal, Micrognathia (under-bite, receding chin) absent, Neck with adequate range of mot ion Dentition: No loose teeth or bridges Possible difficult airway: No ASA Classification *see protocol: CLASS II-Mild systemic disease Plan of Care: Pt appropriate candidate for procedure/moderate/conscious sedation, Risks/benefits of procedure/sedation discussed w/ patient/family Cardiac Registry (Cardio Only) - Functional Capacity Functional Capacity: < 4 METS - Clincal Frailty Scale Clinical Frailty Scale: Vulnerable
[2019-01-15] MEDS ORDERED: *HR* FentaNYL (PF) 100 MCG/2 ML VIAL ONE (12:02)
[2019-01-15] MEDS ORDERED: *HR* Midazolam HCl 2 MG/2 ML VIAL ONE (12:02)
--- NOTE | 2019-01-15 12:44 | Invasive Diagnostic Lab Proc ---
Name: Carole Hearn Date of Study: 01/15/2019 Date: 1940 Ht: 61.8in Medical Record#: [id number] Age: 78 Wt: 187.39lb Gender: Female BSA: 1.86 Order #: [id number] BMI: 34.48 Physicians Procedure Physician: Rowan Pena MD, [facility] Referring MD: Referring MD: Staff Name Position Time In Irasema Singleton RT (R) Monitor 12:03 PM Lucy Camacho RN Scrub 12:03 PM Stacie Sher RN Pickle Sorter 12:03 PM Procedures Performed Procedure L HRT ARTERY/VENTRICLE ANGIO Pre-Procedure Checklist Informed consent is complete signed and on chart. H&P is on chart. ID band is on and ID verified with patient. Patient NPO for procedure The procedure was described for the patient and questions were answered. Blood Pressure: 135/78 ECG is on chart. Rhythm: NSR Plan of Care Patient will tolerate the procedure without complications. Adequate level of comfort will be maintained. Hemodynamics will remain stable Patient will recover from procedure without complications. Respiratory function will be maintained. Cardiac rhythm will remain stable. Patient temperature will be maintained. Patient and/or family have verbalized understanding of the procedure. Patient Education Chief Complaint/Reason for Test: Cardiac Cath Developmental Category: Geriatric (65+ years) Developmentally Appropriate for Age: Yes Learning Barriers: None Education Needs: Procedure Education Method: Verbal Information Taught: Cardiac Cath Educational Evaluation: Able to repeat information Intravenous Access Time IV Size Location DC'd Fluid/Drip Rate Units RN 22g 1" Patent On Arrival 0.9NaCl 25 ml/hr Allergies hydrocodone acetaminophen oxycodone percocet metformin Vital Signs Time BP (mmHg) HR (bpm) O2 Sat. RR (bpm) LOC 12:05 PM / % 4 = Oriented but drowsy 12:05 PM / % 4 = Oriented but drowsy 12:03 PM 135 / 78 100 94 % 20 12:08 PM 127 / 91 67 90 % 14 12:13 PM 130 / 62 57 94 % 12 12:19 PM 122 / 65 68 93 % 12 12:20 PM / % 4 = Oriented but drowsy Procedural Medications Time Medication Dose Units Method Given By 12:04 PM Oxygen 2 L/min nasal cannula Mavis, Stacie RN 12:04 PM Versed 2 mg Intravenous Stacie Sher RN 12:04 PM Fentanyl 50 mcg Intravenous Stacie Sher RN 12:10 PM Oxygen 4 L/min nasal cannula Stacie Sher RN 12:10 PM Lidocaine 2% 19 ml Subcutaneous Rowan Pena MD, [facility] ASA Classification: CLASS II- Mild systemic disease (i.e. well-controlled diabetes, hypertension, asthma, cigarette smoking) Rubén Score Preprocedure Postprocedure Activity 2- Moves 4 extremities sustained head lift Activity 2- Moves 4 extremities sustained head lift Circulation 2- SBP +/= 20 points of pre-anesthetic level Circulation 2- SBP +/= 20 points of pre-anesthetic level Consciousness 2- Awake and alert oriented x 3 Consciousness 2- Awake and alert oriented x 3 O2 Saturation 2- Able to maintain O2 satruation of 92% on room air O2 Saturation 2- Able to maintain O2 satruation of 92% on room air Respiratory 2- Able to deep breathe and cough well Respiratory 2- Able to deep breathe and cough well Total Score 10 Total Score 10 Contrast Agent: Isovue Diagnostic Contrast: 62 ml Total Contrast: 62 ml Fluoro Dose: 40 mGy Procedure Log Time Note Enter By 12:00 PM CathStat 12:00 PM Vitals capture started with the following parameters, Patient=Adult, Interval=5 min, Initial Vjvftqtv=442 mmHg, Deflation Rate=3 mmHg, Cuff placed on Right Arm 12:01 PM Vitals capture stopped. 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 12:02 [email or web address] 12:03 PM ED=175 bpm, EVHZ=375/78 mmhg, SpO2=94.0 %, Resp=20 B/min, Comment=SR 12:03 PM Reference ECG taken 12:03 PM Recorded ECG: HR=90 Condition=Condition 1 12:03 PM Irasema Singleton RT (R) Position: Monitor Time in: 12:03 [email or web address] 12[facility]03 PM Lucy Camacho RN Position: Scrub Time in: 12:03 [email or web address] 12:04 PM Stacie Sher RN Position: Pickle Sorter Time in: 12:03 [email or web address] 12:04 PM Patient charges- Angio tray pack, Navilyst 3mm J, Pulse Oximetry and ACIST tubing and transducer [email or web address] 12:04 PM Case Delayed No [email or web address] 12:04 PM Hair removed from procedure site in holding area using clippers. Bilateral groin prepped with Chloraprep by Irasema Singleton (R), then patient was draped. Skin intact. [email or web address] 12:04 PM Physican paged/called 12:04. [email or web address] 12: PM Physician arrived 12: [email or web address] 12:04 PM ASA Class CLASS II- Mild systemic disease (i.e. well-controlled diabetes, hypertension, asthma, cigarette smoking) [email or web address] 12:04 PM Meet and nick completed [email or web address] 12:04 PM Sign in performed according to hospital policy. Informed consent was obtained. [email or web address] 12:04 PM Procedure start 12:04 [email or web address] 12:04 PM Time: 12:04 Oxygen on at 2 L/min per nasal cannula by Stacie Sher RN [email or web address] 12:04 PM Time: 12:04 Versed 2 mg Intravenous Given by Stacie Sher RN [email or web address] 12:04 PM Time: 12:04 Fentanyl 50 mcg Intravenous Given by Stacie Sher RN [email or web address] 12:05 PM Time: 12:05 Patient comfortable and pain free: Yes [email or web address] 12:05 PM Time: 12:05LOC: 4 = Oriented but drowsy [email or web address] 12:07 PM Pressure channel 1 zero failed. 12:07 PM Pressure channel 1 zero failed. 12:07 PM Pressure channel 1 zero failed. 12:07 PM Pressure channel 1 zeroed. 12:07 PM Pressure channel 1 zeroed. 12:08 PM HR=67 bpm, LZHI=791/91 mmhg, SpO2=90.0 %, Resp=14 B/min, EtCO2=31 mmHg, Comment=SR 12:10 PM Time out was performed according to hospital policy. Conscious sedation and anesthesia was achieved (see medication log with in this report above) [email or web address] 12:10 PM Time: 12:10 Oxygen on at 4 L/min per nasal cannula by Stacie Sher RN [email or web address] 12:11 PM Time: 12:10 19 ml Lidocaine 2% to right groin Subcutaneous [email or web address] PM Access obtained by percutaneous puncture. 5Fr 10cm Terumo [place] sheath placed in right Femoral artery. [id number] [email or web address] 12:12 PM 0.035 145cm Navilyst 3mmJ wire [id number] [email or web address] 12:12 PM 5Fr FL 4 catheter inserted over the wire DN [email or web address] 12:13 PM LCA angiography performed in multiple views. [email or web address] 12:13 PM HR=57 bpm, QLHK=165/62 mmhg, SpO2=94.0 %, Resp=12 B/min, Comment=SR 12:14 PM Recorded Pressure: Ao, HR=82, Condition=Condition 1 (Aorta) Ao 115/81/97 12:15 PM Catheter removed [email or web address] 12:15 PM 5Fr FR 4 catheter inserted over the wire [email or web address] 12:15 PM RCA angiography performed in multiple views. [email or web address] 12:16 PM Recorded Pressure: Ao, HR=76, Condition=Condition 1 (Aorta) Ao 107/78/92 12:17 PM Catheter removed [email or web address] 12:17 PM 5Fr Pigtail catheter inserted over the wire [email or web address] 12:17 PM Catheter crossed the aortic valve and was selectively placed in the left ventricle. Pressures recorded on pullback for left heart catheterization. [email or web address] 12:18 PM Pressure channel 1 zeroed. 12:18 PM Recorded Pressure: LV, HR=71, Condition=Condition 1 (Left Ventricle) LV 119/3/27 12:19 PM Bolus angiogram of left Ventricle complete: 8 ml/sec for a total of 24 mls [email or web address] 12:19 PM HR=68 bpm, LVZE=732/65 mmhg, SpO2=93.0 %, Resp=12 B/min, EtCO2=34 mmHg, Comment=SR 12:19 PM Recorded Pressure: LV, HR=74, Condition=Condition 1 (Left Ventricle) LV 103/58/61 12:20 PM Time: 12:05LOC: 4 = Oriented but drowsy [email or web address] 12:23 PM Procedure completed at 12:23 01/15/2019 [email or web address] 12:23 PM Coronary Dominance: right [email or web address] 12:24 PM Did you address YECENIA flow and Dominance? YesCoronary Dominance: right [email or web address] 12:24 PM Sign out completed: Radiation Dose 123.55 mGy, 40 Gy/cm2 Fluoro Time: 1.8 Isovue 370 - 200ml contrast 62 ml given by Rowan Pena MD, [facility]. Complications: None. 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 Sedation minutes 20. Cardiac Rehab Consult needed: No. Confirmed administered medications: Yes [email or web address] 12:25 PM Isovue 370 - 200ml,1 Bottle(s) used. [email or web address] 12:25 PM Arterial sheath pulled, Mynx closure device used and was Successful S/N. [email or web address] 12:25 PM Estimated Blood Loss: minimal [email or web address] 12:25 PM Vitals capture stopped. 12:25 PM Post ECG NSR [email or web address] 12:25 PM Post Blood Pressure 130/62 [email or web address] 12:26 PM 12:25 Post Pulses Bilateral DP & PT 1+ [email or web address] 12:26 PM Information taught Cardiac Cath and Mynx [email or web address] 12:30 PM Education needs Procedure, Plan of Care, and Disease Process [email or web address] 12:30 PM Learning barriers :None [email or web address] 12:30 PM Education Methods Verbal [email or web address] 12:30 PM Education evaluation Able to repeat information [email or web address] 12:30 PM Site status No bleeding/hematoma - Rt Groin as reported by Lucy Camacho RN at 12:30 [email or web address] 12:30 PM Opsite applied [email or web address] 12:30 PM Delay to floor No [email or web address] 12:30 PM Patient out of room: 12:30 [email or web address] 12:30 PM Complications: None [email or web address] 12:30 PM Family placed in consult room. [email or web address] 12:31 PM Lesion found in Proximal LAD. Pre Stenosis: 30 Pre YECENIA Flow: 3: Complete and Brisk Flow/Perfusion [email or web address] 12:31 PM Lesion found in Mid LAD. Pre Stenosis: 30 Pre YECENIA Flow: 3: Complete and Brisk Flow/Perfusion [email or web address] 12:31 PM Lesion found in Proximal Circumflex. Pre Stenosis: 30 Pre YECENIA Flow: 3: Complete and Brisk Flow/Perfusion [email or web address] 12:32 PM Lesion found in Proximal RCA. Pre Stenosis: 30 Pre YECENIA Flow: 3: Complete and Brisk Flow/Perfusion [email or web address] 12:32 PM Lesion found in Mid RCA. Pre Stenosis: 30 Pre YECENIA Flow: 3: Complete and Brisk Flow/Perfusion [email or web address] 12:35 PM Report given to Ankita FARFAN Pt taken to Room #23. 12:36 [email or web address] 12:35 PM Time: 12:20LOC: 4 = Oriented but drowsy [email or web address] Complications Complication None None Hemodynamics Pressures Site Systolic/A Wave Diastolic/V Wave Mean AO 115 81 97 AO 107 78 92 LV 119 3 27 LV 103 58 61 Post Procedure Information Blood Pressure: 130/62 mmHg Rhythm: NSR Post procedural instructions were given Closure Device Time Device Success/Fail 01/15/2019 12:30:00 PM MynxGrip Successful Site Checks Time Location Status Staff Sheath In? Note 12:30 PM Rt Groin No bleeding/hematoma Lucy Camacho RN Pulses Time Site Pre-Procedure Post-Procedure Note Bilateral DP & PT 2+ Bilateral radial 2+ 12:25:00 PM Bilateral DP & PT 1+ Updated by Irasema Singleton, RT(R) on 01/15/2019 12:38:33 PM electronically signed on 01/15/2019 12:38:56 PM with status of Final
--- NOTE | 2019-01-15 14:50 | Internal Med Progress Note ---
Hospitalist Progress Note - Encounter Date of Encounter: 01/15/19 Time of Encounter: 14:50 - Subjective Interval History: Patient was seen and examined at bedside patient is to undergo left heart catheter today per cardiology currently she is chest pain-free awaiting cardiology recommendations - Exam Vitals: Temp Pulse Resp BP Pulse Ox 97.6 F 70 18 108/76 96 01/15/19 12:43 01/15/19 13:34 01/15/19 13:34 01/15/19 13:34 01/15/19 13:34 Exam: PHYSICAL EXAMINATION: GENERAL APPEARANCE: The patient is alert, oriented and in no acute distress. HEENT: Head is normocephalic. The sinuses are nontender. Pupils are equal and reactive. The nares are patent. Oropharynx clear without lesions. NECK: Supple without lymphadenopathy. HEART: Regular rate and rhythm. LUNGS: No crackles or wheezes are heard. ABDOMEN: Soft, nontender, nondistended with good bowel sounds heard. Inguinal area is normal. EXTREMITIES: Without cyanosis, clubbing or edema. NEUROLOGICAL: Gross nonfocal. SKIN: Warm and dry without any rash. - Assessment and Plan (1) Cerebrovascular accident (CVA) Current Visit: No Status: Acute Assessment and Plan: Left sided weakness at baseline (2) Atrial fibrillation Current Visit: No Status: Chronic Assessment and Plan: currently rate controlled, rate 60-80. Continue metoprolol and cardizem. Cardiac monitoring. Continue Xarelto. Cardiology following 01/15 Currently rate controlled continue with beta colt Cardizem Continuous cardiac monitoring Continue Xarelto Cardiology following (3) Chronic anticoagulation Current Visit: No Status: Acute Assessment and Plan: On xarelto for history of atrial fibrillation (4) Diabetes Current Visit: No Status: Acute Assessment and Plan: Patient is not an insulin dependent diabetic Low dose insulin sliding scale as needed Hold home meds. (5) RAVINDER (acute kidney injury) Current Visit: Yes Status: Resolved Assessment and Plan: Patient's creatinine elevated form previous, likely secondary to dehydration and vomiting. Started on low maintenance fluids of 75cc/hr. Repeat labs in the morning Continue to monitor 01/15 Improved back to baseline we will continue to monitor (6) DVT prophylaxis Current Visit: Yes Status: Acute Assessment and Plan: Continue home xarelto (7) Right shoulder pain Current Visit: Yes Status: Acute Assessment and Plan: 01/12 Pain started in the afternoon, associated with dizziness and vomiting. Patient denies chest pain, denies recent falls although she did have a fall on 01/01/19 after she was walking in her home. Denies injury to the shoulder at that time. Current symptoms suspicious for chest pain equivalent, will rule out ACS. EKG non-ischemic, troponin undetectable. Pain now resolved. Continue to trend troponin Cardiac monitoring Echocardiogram in the morning. Continue xarelto. 01/13 Chest pain and right shoulder pain have improved. ECHO and stress test were unremarkable. Pt had one fall yesterday. PT/OT consulted. 01/14 Tele reviewed and had no jacqui event. Still having weakness or occasional lightheadedness. Pending PT/OT. Cardiology following. 01/15 Weakness and occasional lightheadedness with positional changes PTOT recommending ECF prior patient is declining - Time Spent with Patient Total time spent is greater than 50% in coordination of care (as documented) at patient's floor/unit and/or counseling patient: Internal Medicine: Result - Labs CBC & Chem 7: 01/15/19 03:46 01/15/19 01:56 Labs: Short CBC 01/15/19 Range/Units 03:46 WBC 6.4 (4.3-11.1) K/mcL Hgb 10.2 L (11.5-15.4) g/dL Hct 31.8 L (35.3-44.9) % Plt Count 218 (140-400) K/mcL Neutrophils # 4.2 (1.6-8.9) K/mcL BMP 01/15/19 01:56 Sodium 139 Potassium 3.7 Chloride 107 Carbon Dioxide 23 BUN 15 Creatinine 0.56 L Glucose 121 H Calcium 9.0 - ABG Interpretation ABG results: PT/INR, D-dimer 445 ng/mLFEU (0-500) 01/11/19 19:44 Consult Discharge Plan - Plan Referrals: Job Venegas MD [Partnered Physician] - 01/20/19 1:30 pm ___ (1) Cerebrovascular accident (CVA) Qualifiers: CVA mechanism: embolism Precerebral and cerebral artery: middle cerebral artery Laterality of affected vessel: right Qualified Code(s): I63.411 - Cerebral infarction due to embolism of right middle cerebral artery (2) Atrial fibrillation Qualifiers: Atrial fibrillation type: chronic Qualified Code(s): I48.2 - Chronic atrial fibrillation (4) Diabetes Qualifiers: Diabetes mellitus type: type 2 Diabetes mellitus shelter insulin use: without terminal supervisor use Diabetes mellitus complication status: with hyperglycemia Qualified Code(s): E11.65 - Type 2 diabetes mellitus with hyperglycemia (7) Right shoulder pain Qualifiers: Chronicity: acute Qualified Code(s): M25.511 - Pain in right shoulder
--- NOTE | 2019-01-15 17:08 | Event Note ---
Date of Encounter: 01/15/19 Time of Encounter: 17:06 - Cardiology Event Note Mild CAD per [facility] discussed with patient and family, no further inpatient cardiology recs. Cardiology will sign off, will arrange outpatient follow up.
[2019-01-16] MEDS: Insulin LISPRO 300 UNITS/3 ML VIAL SQ SCH ×2 (07:46→12:16)
[2019-01-16] MEDS: Diltiazem CD (24hr) 180 MG CAPSULE PO SCH (08:10)
[2019-01-16] MEDS: Aspirin 325 MG TABLET PO SCH (08:10)
[2019-01-16] MEDS: Famotidine 20 MG TABLET PO SCH (08:10)
[2019-01-16] MEDS: FLUoxetine 20 MG CAPSULE PO SCH (08:10)
--- NOTE | 2019-01-16 12:47 | Discharge Summary ---
- NOTES TO OUTPATIENT PROVIDER Notes to Outpatient Provider: cp seen by cardiology cath no stents - rehab for shoulder weakness Orders not resulted at time of discharge: Pending orders 01/12/19 18:17 NM magui perf SPECT multi [NM] Routine Date of Encounter: 01/16/19 Time of Encounter: 12:47 - Discharge Diagnosis (1) Cerebrovascular accident (CVA) Priority: Secondary Status: Acute Qualifiers: CVA mechanism: embolism Precerebral and cerebral artery: middle cerebral artery Laterality of affected vessel: right Qualified Code(s): I63.411 - Cerebral infarction due to embolism of right middle cerebral artery (2) Atrial fibrillation Priority: Secondary Status: Chronic Qualifiers: Atrial fibrillation type: chronic Qualified Code(s): I48.2 - Chronic atrial fibrillation (3) Chronic anticoagulation Priority: Secondary Status: Acute (4) Diabetes Priority: Secondary Status: Acute Qualifiers: Diabetes mellitus type: type 2 Diabetes mellitus senior care insulin use: without senior care use Diabetes mellitus complication status: with hyperglycemia Qualified Code(s): E11.65 - Type 2 diabetes mellitus with hyperglycemia (5) RAVINDER (acute kidney injury) Priority: Secondary Status: Resolved (6) Right shoulder pain Priority: Primary Status: Acute Qualifiers: Chronicity: acute Qualified Code(s): M25.511 - Pain in right shoulder Hospital course: Ms. Heran is a 78 year old female past medical history for age fibrillation hypertension hyperlipidemia diabetes type 2 recent CVA with prolonged hospital stay at [facility] presented with weakness dizziness nausea and right shoulder blade pain. Patient was concerned of having a heart attack she does not have any prior history of CAD-she did have some bradycardia on presentation metoprolol was held and she would develop A. fib RVR metoprolol was resumed and patient return back to sinus rhythm she was evaluated by cardiology and underwent a cardiac catheter which showed minimal CAD she also had an AK I which did resolve. She was evaluated by PT and OT recommending rehabilitation she has been accepted [facility] currently she is hemodynamically stable for discharge. - Time Spent with Patient Total time spent providing and/or coordinating discharge services: - Discharge Medications Prescriptions: Continued Diltiazem HCl [Diltiazem 24Hr Cd] 360 mg PO DAILY Aspirin 325 mg PO DAILY Rivaroxaban [Xarelto] 20 mg PO HS Acetaminophen [Tylenol Arthritis] 650 mg PO Q8H PRN PRN Reason: Pain Ammonium Lactate 1 appl TP BID Atorvastatin Calcium 80 mg PO HS Cholecalciferol (Vitamin D3) [Vitamin D3] 2,000 units PO DAILY Vit C/E/Zn/Coppr/Lutein/Zeaxan [Preservision Areds 2 Softgel] 2 cap PO DAILY Metoprolol [Lopressor] 25 mg PO BID #60 tablet Famotidine [Pepcid] 20 mg PO BID #60 tablet FLUoxetine HCl [Prozac] 40 mg PO DAILY #30 capsule Home Medications: Diltiazem HCl [Diltiazem 24Hr Cd] 360 mg PO DAILY 09/26/15 [History] FLUoxetine HCl [Prozac] 40 mg PO DAILY #30 capsule 12/12/18 [Rx] Famotidine [Pepcid] 20 mg PO BID #60 tablet 12/12/18 [Rx] Metoprolol [Lopressor] 25 mg PO BID #60 tablet 12/12/18 [Rx] Acetaminophen [Tylenol Arthritis] 650 mg PO Q8H PRN 01/11/19 [History] Aspirin 325 mg PO DAILY 01/11/19 [History] Rivaroxaban [Xarelto] 20 mg PO HS 01/11/19 [History] Ammonium Lactate 1 appl TP BID 01/13/19 [History] Atorvastatin Calcium 80 mg PO HS 01/13/19 [History] Cholecalciferol (Vitamin D3) [Vitamin D3] 2,000 units PO DAILY 01/13/19 [History] Vit C/E/Zn/Coppr/Lutein/Zeaxan [Preservision Areds 2 Softgel] 2 cap PO DAILY 01/13/19 [History] Allergies/Adverse Reactions: Allergy/AdvReac Type Severity Reaction Status Date / Time hydrocodone Allergy See Verified 01/13/19 13:42 Comments metformin AdvReac Diarrhea, Verified 01/13/19 13:42 Gastrointestinal Upset oxycodone [From Percocet] AdvReac Nausea Verified 01/11/19 23:07 Date of admission: 01/13/19 12:35 Primary care physician: PCP NONE Consults: 01/13/19 09:36 Consult to Occupational Therapy [CONS] Routine Comment: Evaluate, develop and implement POC Reason for Consult: Broken foot. Patient very weak unable to stand or ambulate with out help from staff. Falling at home a lot. Does patient have active BEDREST order?: No Is patient medically & hemodynamically stable?: Yes Patient assessed for mobility or mobilized this visit?: Yes Consult to Physical Therapy [CONS] Routine Comment: Evaluate, develop and implement POC Reason for Consult: Broken foot. Patient very weak unable to stand or ambulate with out help from staff. Falling at home a lot. Does patient have active BEDREST order?: No Is patient medically & hemodynamically stable?: Yes Patient assessed for mobility or mobilized this visit?: Yes 01/13/19 10:26 Consult to Cardiology [CONS] Routine Comment: Consulting Provider: Cardiology Rosy Reason for Consult: abnormal ECHO, weakness, bradycadia Call Completed: Yes 01/13/19 15:35 Consult to Siderographer [CONS] Routine Reason for SW Consult: patient assistance, home health Discharging clinician: Desirae Osborn Anticipated date of discharge: 01/16/19 - Constitutional Vitals: Temp Pulse Resp BP Pulse Ox 97.6 F 75 16 91/65 92 01/16/19 11:58 01/16/19 11:58 01/16/19 11:58 01/16/19 11:58 01/16/19 11:58 General appearance: Present: cooperative, A&O X 3, pleasant, no acute distress, answers questions appropriately Exam: PHYSICAL EXAMINATION: GENERAL APPEARANCE: The patient is alert, oriented and in no acute distress. HEENT: Head is normocephalic. The sinuses are nontender. Pupils are equal and reactive. The nares are patent. Oropharynx clear without lesions. NECK: Supple without lymphadenopathy. HEART: Regular rate and rhythm. LUNGS: No crackles or wheezes are heard. ABDOMEN: Soft, nontender, nondistended with good bowel sounds heard. Inguinal area is normal. EXTREMITIES: Without cyanosis, clubbing or edema. NEUROLOGICAL: Gross nonfocal. SKIN: Warm and dry without any rash. - Patient Status Disposition: Transfer Inpatient Rehab Fac Condition: Good Functional capacity at discharge: uses cane/walker Overall status at discharge: patient is back to baseline - Discharge Instructions Instructions: Pacemaker (DC) Follow Up With: Job Venegas MD [Partnered Physician] - 01/20/19 1:30 pm Forms: ED Satisfaction Letter - Diet and Activity Activity: as per physical therapy Diet: advance to your usual diet
--- NOTE | 2019-01-16 13:31 | Physician Discharge Referral ---
ExtendedCare Referral Info Transfer To: [facility] Provider in Charge: Roe Osborn Provider in Charge after Transfer: PCP Institutional Level of Care: Skilled - Diagnosis (1) Cerebrovascular accident (CVA) Priority: Secondary Status: Acute (2) Atrial fibrillation Priority: Secondary Status: Chronic (3) Chronic anticoagulation Priority: Secondary Status: Acute (4) Diabetes Priority: Secondary Status: Acute (5) RAVINDER (acute kidney injury) Priority: Secondary Status: Resolved (6) Right shoulder pain Priority: Primary Status: Acute Prognosis: Good Aware of Diagnosis: Patient Aware of Prognosis: Patient - Transfer Medications Home Medications: Diltiazem HCl [Diltiazem 24Hr Cd] 360 mg PO DAILY 09/26/15 [History] FLUoxetine HCl [Prozac] 40 mg PO DAILY #30 capsule 12/12/18 [Rx] Famotidine [Pepcid] 20 mg PO BID #60 tablet 12/12/18 [Rx] Metoprolol [Lopressor] 25 mg PO BID #60 tablet 12/12/18 [Rx] Acetaminophen [Tylenol Arthritis] 650 mg PO Q8H PRN 01/11/19 [History] Aspirin 325 mg PO DAILY 01/11/19 [History] Rivaroxaban [Xarelto] 20 mg PO HS 01/11/19 [History] Ammonium Lactate 1 appl TP BID 01/13/19 [History] Atorvastatin Calcium 80 mg PO HS 01/13/19 [History] Cholecalciferol (Vitamin D3) [Vitamin D3] 2,000 units PO DAILY 01/13/19 [History] Vit C/E/Zn/Coppr/Lutein/Zeaxan [Preservision Areds 2 Softgel] 2 cap PO DAILY 01/13/19 [History] Allergies/Adverse Reactions: Allergy/AdvReac Type Severity Reaction Status Date / Time hydrocodone Allergy See Verified 01/13/19 13:42 Comments metformin AdvReac Diarrhea, Verified 01/13/19 13:42 Gastrointestinal Upset oxycodone [From Percocet] AdvReac Nausea Verified 01/11/19 23:07 - Respiratory Orders Smoking Cessation: Smoking cessation has been advised. For more information, call the [place] Tobacco Quit Line at 4-453-TPBE-NOW. - Advance Directives Code Status: Full Code - Mobility Orders Ambulate - Rehabiliation Orders Rehab Potential: Good Rehab Orders: Evaluation for Physical Therapy - Diet Orders Cardiac CERTIFICATION: I certify that the transfer of the above named patient to an Extended Care Facility is necessary for the continuing treatment of the diagnosis listed. The above information is true and accurate reflection of patient's current condition. Confidential - Redisclosure prohibited without a patient's written consent.
[2019-01-16 13:36] VITALS: BP 112/80
[2019-01-16] MEDS ORDERED: *HR* Rivaroxaban 10 MG TABLET PO SCH (17:00)
== END 2019-01-16 14:06 | DRG 287 ==
LOC: EMEROOARM 19:15 → 3BNU 19:15
PROVIDERS: ADMIT Family Medicine; ATTEND Family Medicine

== ENCOUNTER 2022-02-02 11:09 | Inpatient (IN) ==
[2022-02-02 11:50] LABS: Basophils # 0.1 K/mcL (0.0-0.2); Basophils % 0.8 %; Eosinophils # 0.1 K/mcL (0.0-0.6); Eosinophils % 2.2 %; Hematocrit 48.3 % (35.3-44.9); Hemoglobin 15.7 g/dL (11.5-15.4); Immature Granulocytes % 0.2 % (0-4); Lymphocytes # 1.4 K/mcL (0.6-4.6); Mean Corpuscular HGB Conc 32.5 g/dL (31.6-35.5); Mean Corpuscular Hemoglobin 32.2 pg (28.0-33.3); Mean Corpuscular Volume 99.2 fL (83.0-100.0); Mean Platelet Volume 10.1 fL (9.4-12.4); Monocytes # 0.7 K/mcL (0.0-1.3); Monocytes % 11.7 %; Neutrophils # 3.7 K/mcL (1.6-8.9); Platelet Count 183 K/mcL (140-400); Red Blood Count 4.87 M/mcL (3.82-4.97); Segmented Neutrophils % 62.1 %
[2022-02-02 12:10] LABS: BUN/Creatinine Ratio 17 (6-26); Blood Urea Nitrogen 13 mg/dL (8-23); Calcium 9.2 mg/dL (8.6-10.3); Carbon Dioxide 28 mEq/L (23-29); Chloride 106 mEq/L (98-107); Glucose 117 mg/dL (70-105); Osmolality,Calculated 291 (280-300); Potassium 3.9 mEq/L (3.5-5.1); Sodium 140 mEq/L (136-145); Troponin I < 0.03 ng/mL (< 0.04); eGFR For African Americans > 60 (> 60); eGFR For Non-African Americans > 60 (> 60)
[2022-02-02] MEDS ORDERED: Ondansetron 4 MG/2 ML VIAL IVP PRN (14:38)
[2022-02-02] MEDS ORDERED: Melatonin 3 MG TABLET PO PRN (14:38)
[2022-02-02] MEDS ORDERED: Acetaminophen 325 MG TABLET PO PRN (14:38)
[2022-02-02] MEDS ORDERED: Naloxone 0.4 MG/ML INJ IVP PRN (14:38)
[2022-02-02] MEDS ORDERED: Perflutren Lipid Microsphere 1.3 ML in 0.9 % Sodium Chloride 8.7 ML IVP PRN (14:43)
[2022-02-02] MEDS: Aspirin Enteric Coated 81 MG Tablet PO SCH (15:37)
[2022-02-02] MEDS: Metoprolol XL (24 HR) Succ 25 MG TAB.ER.24H PO SCH (15:37)
[2022-02-02] MEDS ORDERED: *HR* Dextrose 50 % in Water (Syg) 50 ML SYRINGE IVP PRN (16:43)
[2022-02-02] MEDS ORDERED: D5% in Water 1,000 ML IVC PRN (16:43)
[2022-02-02] MEDS ORDERED: Dextrose Gel 15 GM/37.5 ML TUBE PO PRN ×2 (16:43)
[2022-02-02] MEDS: Insulin LISPRO 300 UNITS/3 ML VIAL SUBQ SCH (17:00)
[2022-02-02] MEDS: *HR* Heparin 5,000 UNIT/ML VIAL SQ SCH (17:37)
[2022-02-02] MEDS ORDERED: Morphine Sulfate 2 MG/ML SYRINGE IVP PRN (19:38)
[2022-02-02] MEDS ORDERED: Nitroglycerin 0.4 MG TAB.SUBL SL PRN (19:38)
[2022-02-02] MEDS: levETIRAcetam 250 MG TABLET PO SCH (21:04)
[2022-02-02] MEDS: lisinopriL 5 MG TABLET PO SCH (21:05)
[2022-02-03 02:00] LABS: INR 1.1; Prothrombin Time 12.8 Seconds (9.4-12.1)
[2022-02-03 02:14] LABS: BUN/Creatinine Ratio 19 (6-26); Blood Urea Nitrogen 13 mg/dL (8-23); Calcium 8.9 mg/dL (8.6-10.3); Carbon Dioxide 25 mEq/L (23-29); Chloride 108 mEq/L (98-107); Glucose 99 mg/dL (70-105); Osmolality,Calculated 292 (280-300); Potassium 4.1 mEq/L (3.5-5.1); Sodium 141 mEq/L (136-145); eGFR For African Americans > 60 (> 60); eGFR For Non-African Americans > 60 (> 60)
[2022-02-03 02:18] LABS: C-Reactive Protein < 5 mg/L (Less than 10); Troponin I < 0.03 ng/mL (< 0.04)
[2022-02-03 07:18] LABS: Estimated Average Glucose 151 mg/dl; Hemoglobin A1C 6.9 %
[2022-02-03] MEDS: *HR* Heparin 5,000 UNIT/ML VIAL SQ SCH ×2 (07:37→18:03)
[2022-02-03] MEDS: Aspirin Enteric Coated 81 MG Tablet PO SCH (07:39)
[2022-02-03] MEDS: Insulin LISPRO 300 UNITS/3 ML VIAL SUBQ SCH ×3 (07:41→16:50)
[2022-02-03] MEDS: Metoprolol XL (24 HR) Succ 25 MG TAB.ER.24H PO SCH (07:53)
[2022-02-03] MEDS: Anastrozole 1 MG TABLET PO SCH (07:53)
[2022-02-03] MEDS: lisinopriL 5 MG TABLET PO SCH ×2 (07:53→19:35)
[2022-02-03] MEDS: levETIRAcetam 250 MG TABLET PO SCH ×2 (07:54→19:34)
[2022-02-03] MEDS: FLUoxetine 20 MG CAPSULE PO SCH (07:54)
[2022-02-03] MEDS ORDERED: *HR* FentaNYL (PF) 100 MCG/2 ML VIAL ONE (13:34)
[2022-02-03] MEDS ORDERED: *HR* Midazolam HCl 2 MG/2 ML VIAL ONE (13:34)
[2022-02-03] MEDS ORDERED: Iopamidol - 370 200 ML INFUS..BTL ONE ×2 (13:35→15:10)
[2022-02-03] MEDS ORDERED: Heparin 1,000 UNITS/500 mL 500 ML ONE ×2 (13:35→15:38)
[2022-02-03] MEDS ORDERED: *HR* Heparin 10,000 UNIT/10 ML VIAL ONE ×2 (13:35→15:45)
[2022-02-03] MEDS ORDERED: Nitroglycerin 1,000 MCG/5 ML VIAL IV ONE (13:35)
[2022-02-03] MEDS ORDERED: 0.9 % Sodium Chloride 2,000 ML ONE (13:35)
[2022-02-04 02:36] LABS: BUN/Creatinine Ratio 22 (6-26); Blood Urea Nitrogen 17 mg/dL (8-23); Calcium 8.8 mg/dL (8.6-10.3); Carbon Dioxide 24 mEq/L (23-29); Chloride 105 mEq/L (98-107); Glucose 222 mg/dL (70-105); Magnesium 1.9 mg/dL (1.6-2.6); Osmolality,Calculated 294 (280-300); Potassium 3.6 mEq/L (3.5-5.1); Sodium 138 mEq/L (136-145); eGFR For African Americans > 60 (> 60); eGFR For Non-African Americans > 60 (> 60)
[2022-02-04 02:39] LABS: Chol/HDL Ratio 2.5 (0-4.9)
[2022-02-04] MEDS: *HR* Heparin 5,000 UNIT/ML VIAL SQ SCH (05:26)
[2022-02-04 06:37] VITALS: TEMP 97.5
[2022-02-04] MEDS: Insulin LISPRO 300 UNITS/3 ML VIAL SUBQ SCH (08:39)
[2022-02-04] MEDS: Aspirin Enteric Coated 81 MG Tablet PO SCH (08:51)
[2022-02-04] MEDS: FLUoxetine 20 MG CAPSULE PO SCH (08:51)
[2022-02-04] MEDS: lisinopriL 5 MG TABLET PO SCH (08:51)
[2022-02-04] MEDS: levETIRAcetam 250 MG TABLET PO SCH (08:52)
[2022-02-04] MEDS: Anastrozole 1 MG TABLET PO SCH (08:52)
[2022-02-04] MEDS: Metoprolol XL (24 HR) Succ 25 MG TAB.ER.24H PO SCH (08:52)
[2022-02-04 10:21] VITALS: BP 112/59; PULSE 88; O2SAT 93
== END 2022-02-04 13:42 | disposition home or self-care (01) | DRG 287 ==
LOC: 3BNU 11:09 → EMEROOARM 11:09 → 3BNU 13:50 → SUATTDRO 13:51
PROVIDERS: ADMIT Internal Medicine; ATTEND Internal Medicine